=== PATIENT | female | born 1990 | race Caucasian/White ===

== ENCOUNTER 2018-11-07 03:07 | Emergency (ER) | payer BC ==
[~2018-11-07] VITALS: Ht 162.6 cm; Wt 67.1 kg
[2018-11-07] MEDS ORDERED: PROTONIX40 M1 (03:18)
[2018-11-07] MEDS ORDERED: ZOLOFT50 MG PO (03:18)
[2018-11-07] MEDS ORDERED: RANITIDINE 150150 M1 (03:19)
[2018-11-07] MEDS ORDERED: MONTELUKAST SOD10 MG (03:19)
[2018-11-07] MEDS ORDERED: FLONASE 0.05%50 MCG (03:19)
[2018-11-07] MEDS ORDERED: WELLBUTRIN SR150 MG (03:19)
[2018-11-07] MEDS ORDERED: DEPO-PROVE150 MG/1 M (03:23)
[2018-11-07 03:52] LABS: ABSOLUTE BASOPHILS 0.1 thou/uL (0.0-0.2); ABSOLUTE EOSINOPHILS 0.3 thou/uL (0.0-0.7); ABSOLUTE LYMPHOCYTES 2.6 thou/uL (0.8-5.3); ABSOLUTE MONOCYTES 0.7 thou/uL (0.0-1.2); ABSOLUTE NEUTROPHILS 4.9 thou/uL (1.6-8.1); BASOPHILS 0.6 %; HEMATOCRIT 39.1 % (37.0-47.0); HEMOGLOBIN 13.4 gm/dL (12.0-15.0); LYMPHOCYTES 30.9 %; MCH 29.8 pg (26.0-34.0); MCHC 34.2 g/dL (28.0-37.0); MCV 87.2 fL (80.0-100.0); MONOCYTES 7.8 %; MPV 8.2 fl. (7.2-11.1); NUCLEATED RBCS 0 /100WBC; PLATELET COUNT* 271 thou/uL (150-400); POLYS 57.7 %; RBC 4.49 mil/uL (4.20-5.00); RDW-CV 12.8 % (10.5-14.5); WBC 8.4 thou/uL (4.0-11.0)
[2018-11-07 03:59] LABS: CALCIUM 8.5 mg/dL (8.5-10.1); CREATININE 0.8 mg/dL (0.6-1.3); POTASSIUM 3.7 mmol/L (3.5-5.1)
[2018-11-07 04:04] LABS: ALBUMIN 3.8 g/dL (3.4-5.0); TOTAL BILIRUBIN 0.3 mg/dL (<0.1-1.0); TOTAL PROTEIN 7.1 g/dL (6.4-8.2)
[2018-11-07 04:47] VITALS: BP 114/81
== END 2018-11-07 04:48 | disposition home or self-care (01) ==
LOC: M.ERS 03:07
PROVIDERS: Family Medicine
DX: R51 Headache (principal); F41.9 Anxiety disorder, unspecified; K21.9 Gastro-esophageal reflux disease without esophagitis; Z88.8 Allergy status to other drugs, medicaments and biological substances